=== PATIENT | male | born 1990 | race Caucasian/White ===

== ENCOUNTER → 2016-07-19 | Outpatient (CLI) | payer MEDICAID, OTHER | LOC: FIMAGING 10:25 | DX: N43.3 Hydrocele, unspecified (principal) ==

== ENCOUNTER 2016-10-28 17:06 | Emergency (ER) | payer MEDICAID ==
--- NOTE | 2016-10-28 17:28 | EDPHY ---
H & P Time Seen by Provider: 10/28/16 17:10 HPI/ROS: CHIEF COMPLAINT: Heel laceration HISTORY OF PRESENT ILLNESS: This is a 26-year-old male presenting to the emergency department reports going [place] jump [place] the [place] from the [place] slipped cutting his right heel 1 hour [employer]. Denies any other injury, tender right heel with weight-bearing. Tetanus vaccine up-to-date per patient REVIEW OF SYSTEMS: Constitutional: No fever, no chills. Eyes: No discharge. ENT: No sore throat. Cardiovascular: No chest pain, no palpitations. Respiratory: No cough, no shortness of breath. Musculoskeletal: No back pain. Right heel pain laceration Skin: No rashes. Neurological: No headache. Smoking Status: Never smoked Physical Exam: General Appearance: Alert and no distress. Eyes: Pupils equal and round no injection. Respiratory: Nonlabored respiratory effort Cardiac: regular rate and rhythm Gastrointestinal: Abdomen is soft and nontender, no masses Musculoskeletal: Vertebral cervical spine nontender on palpation full range of motion Extremities: Right heel plantar and 2.5 cm laceration Skin: No rashes or lesions. Constitutional: Initial Vital Signs Temperature (C) 36.6 C 10/28/16 17:11 Heart Rate 77 10/28/16 17:11 Respiratory Rate 17 10/28/16 17:11 Blood Pressure 144/76 H 10/28/16 17:11 O2 Sat (%) 99 10/28/16 17:11 O2 Delivery Mode Room Air Allergies/Adverse Reactions: No Known Allergies Allergy (Unverified 10/28/16 17:10) Home Medications: Medication Instructions Recorded Amoxicillin/Clavulanate Pot 875 mg PO BID #14 tab 10/28/16 [Augmentin 875 MG TAB (*)] Medical Decision Making Procedures: Procedure: Laceration repair. Verbal consent was obtained from the patient. 2.5 cm laceration on the right plantar heel. 0.5 bupivacaine with epinephrine used for local infiltrate 3ml The wound was irrigated. There were no deep structures involved. The wound was repaired 4-0 Prolene #7 sutures placed The procedure was performed by myself. A dressing was applied by our EMT. ED Course/Re-evaluation: Discussed ED plan of care: Wound irrigation, wound repair. I also discussed x- ray to rule out any foreign body in soft tissue patient declined at this time. 181: Wound repair patient tolerated procedure. Discharge home---> stable, discussed discharge instructions Differential Diagnosis: Other differential diagnosis considered but not limited to calcaneal fracture, foreign body, ankle sprain - Data Points Medications Given: Discontinued Medications Amoxicillin/Clavulanate Potassium (Augmentin 875mg) 875 mg PO EDNOW ONE PRN Reason: Protocol Stop: 10/28/16 18:02 Last Admin: 10/28/16 18:21 Dose: 875 mg Departure - Departure Disposition: Home, Routine, Self-Care Clinical Impression: Laceration Condition: Good Instructions: Care For Your Stitches (ED), Laceration (ED) Additional Instructions: 1. Have stitches removed in 10 days 2. No [place] water river water exposure as this can increase chances for wound infection 3. We have initial dressing on for 24 hours, then after daily dressing changes 4. Ibuprofen 600-800 mg every 6-8 hours 5. If you notice any redness red streaks swelling pus any fever return to the ER Referrals: PATI VALVERDE [Other] - As per Instructions Prescriptions: Amoxicillin/Clavulanate Pot [Augmentin 875 MG TAB (*)] 875 mg PO BID #14 tab
[2016-10-28] MEDS ORDERED: AMOXICILLIN/CLAVULANATE POT 875/125 MG TAB PO ONE (18:01)
[2016-10-28 18:29] VITALS: BP 128/79; PULSE 74; RESP 18; TEMP 98.4; O2SAT 98
== END 2016-10-28 18:28 | disposition home or self-care (01) ==
PROC: 0HQMXZZ Repair Right Foot Skin, External Approach (ICD-10-PCS; principal; 2016-10-28)
DX: S91.311A Laceration without foreign body, right foot, initial encounter (principal); W45.8XXA Other foreign body or object entering through skin, initial encounter; Y92.828 Other wilderness area as the place of occurrence of the external cause; Y99.8 Other external cause status; Y93.39 Activity, other involving climbing, rappelling and jumping off